=== PATIENT | male | born 1995 | race Caucasian/White ===

== ENCOUNTER 2017-02-09 05:09 | Emergency (ER) | payer SELFPAY ==
[~2017-02-09] VITALS: Ht 175.3 cm; Wt 86.2 kg
--- NOTE | 2017-02-09 05:10 | NUR ---
PT.BIB [facility] TO ER OF [facility]
[2017-02-09 05:13] VITALS: BP 132/93
--- NOTE | 2017-02-09 05:15 | NUR ---
Patient being evaluated by physician
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
[2017-02-09 05:30] VITALS: BP 132/93
--- NOTE | 2017-02-09 05:30 | NUR ---
PATIENT BIB [facility] POLICE DEPT. PATIENT EXAMINED BY DR. RICHARDS. PATIENT MEDICALLY CLEARED AND RELEASED IN CUSTODY IN STABLE CONDITION. ORIGINAL PRE-BOOK FORM GIVEN TO [facility] OFFICER .
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
== END 2017-02-09 05:20 ==
LOC: MED 05:09
DX: Z02.89 Encounter for other administrative examinations (principal)
CPT/HCPCS: 99283